=== PATIENT | female | born 1935 | race Caucasian/White ===

== ENCOUNTER 2016-08-07 08:30 | Emergency (ER) | payer OTHER, BC ==
[2016-08-07 08:42] VITALS: TEMP 97.9; BMI 22.1
[2016-08-07] MEDS ORDERED: morphine CARPU-JECT 4 MG/1 ML DISP.SYRIN IVPUSH ONE (08:59)
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
[2016-08-07] MEDS ORDERED: ACETAMINOPHEN INJECTION 100 ML IVPB ONE (09:14)
[2016-08-07] MEDS ORDERED: ACETAMINOPHEN 1000 MG/100 ML VIAL (NON FORMULARY) IVPB ONE (09:16)
[2016-08-07 09:31] LABS: BASOPHIL 1.4 % (0-2.0); EOSINOPHIL 1.5 % (0-4.5); MCH 29.5 pg (25.7-33.7); MCHC 33.2 g/dl (32.0-36.0); MEAN PLT VOLUME 8.1 fl (7.5-11.1); NEUTROPHILS 68.1 % (42.8-82.8); PLATELET COUNT 229 K/MM3 (134-434); RDW 13.7 % (11.6-15.6); WHITE BLOOD COUNT 5.2 K/mm3 (4.0-10.0)
[2016-08-07 09:58] LABS: ALBUMIN 3.9 g/dl (3.4-5.0); ANION GAP 9 (8-16); CALCIUM 9.2 mg/dL (8.5-10.1); CO2 25 mmol/L (21-32); COCKROFT - GAULT 51.8755; CREATININE 0.8 mg/dL (0.55-1.02); GLUCOSE,RANDOM 90 mg/dL (74-106); SGOT/AST 19 U/L (15-37); SGPT/ALT 17 U/L (12-78)
[2016-08-07 10:00] LABS: ALK PHOS 93 U/L (45-117); BILIRUBIN,TOTAL 0.5 mg/dL (0.2-1.0); TOT PROT 7.3 g/dl (6.4-8.2)
[2016-08-07 12:30] VITALS: BP 150/80; PULSE 78
== END 2016-08-07 12:30 | disposition home or self-care (01) ==
LOC: JER 08:30
PROC: 3E033NZ Introduction of Analgesics, Hypnotics, Sedatives into Peripheral Vein, Percutaneous Approach (ICD-10-PCS; principal; 2016-08-07)
DX: M25.552 Pain in left hip (principal); I25.10 Atherosclerotic heart disease of native coronary artery without angina pectoris; Z95.1 Presence of aortocoronary bypass graft; J44.9 Chronic obstructive pulmonary disease, unspecified; E78.00 Pure hypercholesterolemia, unspecified; Z87.891 Personal history of nicotine dependence; Z79.82 Long term (current) use of aspirin
CPT/HCPCS: 36415; 73523-TC; 80053; 85025; 99282-25

== ENCOUNTER 2016-08-09 21:08 | Inpatient (IN) | payer OTHER, BC ==
[2016-08-09 21:28] VITALS: BMI 24.1
--- NOTE | 2016-08-09 21:42 | PDOC ---
History of Present Illness - General History Source: Patient Exam Limitations: No Limitations - History of Present Illness Initial Comments: 08/09/16 22:31 The patient is a 80 year old female brought via EMS and presenting with her daughter, with a significant past medical history of COPD, CABG, and HLD, who presents to the emergency department after a fall today. She reports that she was sitting on the couch, when she slid off and landed on her buttocks. She currently reports some mild hip pain, without radiation or modifying factors. She states that she ambulates with a cane on baseline. She notes that she lives alone and has been progressively getting weaker. Drinks ensure 5 bottles a day. The patient denies chest pain, shortness of breath, headache and dizziness. Denies fever, chills, nausea, vomit, diarrhea and constipation. Denies dysuria, frequency, urgency and hematuria. Allergies: None Past surgical history: Tripple bypass (2010), left hip surgery Social history: No alcohol, tobacco or drug use reported PMD - Dr. Fleming <Bharath Maldonado - Last Filed: 08/09/16 22:31> - General History Source: [facility] Records <Hermelinda Jett - Last Filed: 08/10/16 06:00> - General Chief Complaint: Injury Stated Complaint: FALL Time Seen by Provider: 08/09/16 21:32 Past History <Bharath Maldonado - Last Filed: 08/09/16 22:31> - Past Medical History Cardiac Disorders: Yes (CABG) COPD: Yes Hypercholesterolemia: Yes - Surgical History Cardiac Surgery: Yes (cabg) Orthopedic Surgery: Yes (l hip surgery) - Immunization History Immunization Up to Date: Yes - Psycho/Social/Smoking Cessation Hx Anxiety: No Suicidal Ideation: No Smoking History: Never smoked Have you smoked in the past 12 months: No Information on smoking cessation initiated: No Hx Alcohol Use: No Drug/Substance Use Hx: No Substance Use Type: None <Hermelinda Jett - Last Filed: 08/10/16 06:00> - Past Medical History Allergies/Adverse Reactions: Allergies Allergy/AdvReac Type Severity Reaction Status Date / Time No Known Allergies Allergy Verified 08/09/16 21:25 Home Medications: Ambulatory Orders Albuterol 2.5/Ipratropium 0.5 [Duoneb -] 1 [facility] QIDR #1 vial 03/22/14 Aspirin [ASA -] 81 mg PO DAILY #1 tab.chew 03/22/14 Atorvastatin Ca [Lipitor] 40 mg PO HS 1 Days 03/22/14 Carvedilol [Coreg -] 3.125 mg PO BID #1 tablet 03/22/14 Clopidogrel Bisulfate [Plavix -] 75 mg PO DAILY #1 tablet 03/22/14 Pantoprazole Sodium [Protonix -] 40 mg PO DAILY #1 tablet.ec 03/22/14 Thiamine HCl [Vitamin B1 -] 100 mg PO DAILY #1 tablet 03/22/14 Acetaminophen [Tylenol -] 1,000 mg PO TID PRN #30 tablet 08/07/16 Methocarbamol [Robaxin -] 250 mg PO TID PRN #10 tablet 08/07/16 Review of Systems - Review of Systems Able to Perform ROS?: Yes Comments:: 08/09/16 22:31 GENERAL/CONSTITUTIONAL: (+) Generalized weaknes. No fever or chills. HEAD, EYES, EARS, NOSE AND THROAT: No change in vision. No ear pain or discharge. No sore throat. CARDIOVASCULAR: No chest pain or shortness of breath RESPIRATORY: No cough, wheezing, or hemoptysis. GASTROINTESTINAL: No nausea, vomiting, diarrhea or constipation. GENITOURINARY: No dysuria, frequency, or change in urination. MUSCULOSKELETAL: (+) Hip pain. No neck or back pain. SKIN: No rash NEUROLOGIC: No headache, vertigo, loss of consciousness, or change in strength/ sensation. ENDOCRINE: No increased thirst. No abnormal weight change HEMATOLOGIC/LYMPHATIC: No anemia, easy bleeding, or history of blood clots. ALLERGIC/IMMUNOLOGIC: No hives or skin allergy. <Bharath Maldonado - Last Filed: 08/09/16 22:31> *Physical Exam - Vital Signs Last Vital Signs Temp Pulse Resp BP Pulse Ox 97.6 F 92 H 18 105/63 97 08/09/16 21:25 08/09/16 21:25 08/09/16 21:25 08/09/16 21:25 08/09/16 21:25 - Physical Exam Comments: 08/09/16 22:31 GENERAL: Awake, alert, to person and place but not time, in no acute distress. Thin appearing. Wasted muscles throughout. HEAD: No signs of trauma, normocephalic, atraumatic EYES: PERRLA, EOMI, sclera anicteric, conjunctiva clear ENT: Auricles normal inspection, hearing grossly normal, nares patent, oropharynx clear without exudates. Moist mucosa NECK: Normal ROM, supple, no lymphadenopathy, JVD, or masses LUNGS: No distress, speaks full sentences, clear to auscultation bilaterally HEART: Regular rate and rhythm, normal S1 and S2, no murmurs, rubs or gallops, peripheral pulses normal and equal bilaterally. ABDOMEN: Soft, nontender, normoactive bowel sounds. No guarding, no rebound. No masses EXTREMITIES: Normal inspection, Normal range of motion, no edema. No clubbing or cyanosis. NEUROLOGICAL: Cranial nerves II through XII grossly intact. Normal speech, no focal sensorimotor deficits SKIN: Warm, Dry, normal turgor, no rashes or lesions noted. <Bharath Maldonado - Last Filed: 08/09/16 22:31> - Vital Signs Last Vital Signs Temp Pulse Resp BP Pulse Ox 97.6 F 92 H 18 105/63 97 08/09/16 21:25 08/09/16 21:25 08/09/16 21:25 08/09/16 21:25 08/09/16 21:25 <Hermelinda Jett - Last Filed: 08/10/16 06:00> ED Treatment Course - LABORATORY CBC & Chemistry Diagram: 08/09/16 22:00 08/09/16 22:00 - ADDITIONAL ORDERS Additional order review: Laboratory Results 08/09/16 22:00 INR 1.08 08/09/16 22:00 RBC 3.87 MCV 89.0 MCHC 32.5 RDW 13.5 MPV 8.0 Neutrophils % 71.2 Lymphocytes % 15.3 Monocytes % 11.7 H Eosinophils % 0.9 Basophils % 0.9 <Bharath Maldonado - Last Filed: 08/09/16 22:31> - LABORATORY CBC & Chemistry Diagram: 08/09/16 22:00 08/09/16 22:00 <Hermelinda Jett - Last Filed: 08/10/16 06:00> Medical Decision Making - Medical Decision Making 08/10/16 05:57 Niece brings patient to the ER, as pt is too weak to stand and has early dementia, and she slipped and fell off the couch, where she has been sleeping lately. Pt lives alone, and states that she stopped cooking and drinks 5 ensures daily. Pt smells and her clothes are dirty and it is clear that she cannot care for self. Pt is dehydrated and weak. She is alert to person and place. I spoke to her PMD Anival, who states that pt has mild dementia for a long time, but that it never stopped her from driving and caring for self. She will be admitted for hydration and workup. She will require physical therapy for strengthening and likely social work consult. 08/10/16 06:00 PMD wants me to admit to the hospitalist as observation patient. <Hermelinda Jett - Last Filed: 08/10/16 06:00> *DC/Admit/Observation/Transfer - Attestations Scribe Attestion: 08/09/16 22:32 Documentation prepared by Bharath Maldonado, acting as medical library assistant for Hermelinda Jett MD <Bharath Maldonado - Last Filed: 08/09/16 22:31> - Discharge Dispostion Admit: Yes <Hermelinda Jett - Last Filed: 08/10/16 06:00> Diagnosis at time of Disposition: Dementia, Generalized weakness, Fall from chair, Dehydration
[2016-08-09 22:12] LABS: BASOPHIL 0.9 % (0-2.0); EOSINOPHIL 0.9 % (0-4.5); MCH 28.9 pg (25.7-33.7); MCHC 32.5 g/dl (32.0-36.0); NEUTROPHILS 71.2 % (42.8-82.8); PLATELET COUNT 232 K/MM3 (134-434); RDW 13.5 % (11.6-15.6); WHITE BLOOD COUNT 7.5 K/mm3 (4.0-10.0)
[2016-08-09 22:23] LABS: INR 1.08 (0.82-1.09); PROTHROMBIN TIME (PATIENT) 11.9 SEC (9.98-11.88)
[2016-08-09] MEDS ORDERED: SODIUM CHLORIDE 0.9% 500 ML INFUS.BAG IV ONE (22:31)
[2016-08-09 22:34] LABS: ALBUMIN 3.4 g/dl (3.4-5.0); BILIRUBIN,TOTAL 0.4 mg/dL (0.2-1.0); CALCIUM 8.4 mg/dL (8.5-10.1); COCKROFT - GAULT 37.026; CREATININE 1.3 mg/dL (0.55-1.02); TOT PROT 6.5 g/dl (6.4-8.2)
--- NOTE | 2016-08-10 00:09 | PN ---
<RaminChhaya nguyen - Last Filed: 08/10/16 00:07> Teaching Attending Note Name of Resident: Warren Carrillo ATTENDING PHYSICIAN STATEMENT I saw and evaluated the patient. I reviewed the resident's note and discussed the case with the resident. I agree with the resident's findings and plan as documented. SUBJECTIVE: OBJECTIVE: ASSESSMENT AND PLAN: <Sujata Cervantes - Last Filed: 08/10/16 01:01> Teaching Attending Note ATTENDING PHYSICIAN STATEMENT I saw and evaluated the patient. I reviewed the resident's note and discussed the case with the resident. I agree with the resident's findings and plan as documented. SUBJECTIVE: 80 year old female brought via EMS and presenting with her daughter, with a significant past medical history of CAD s/p CABG(on aspirin and Plavix), COPD, HLD and left hip ORIF, who presents to the emergency department s/p sitting on her couch when she slid off the couch and landed on her buttocks. Patient is complaining of right hip pain s/p fall. Denies LOC, head trauma, lightheadedness, nausea, vomiting or abdominal pain. OBJECTIVE: VS: Last Vital Signs Temp Pulse Resp BP Pulse Ox 97.6 F 92 H 18 105/63 97 08/09/16 21:25 08/09/16 21:25 08/09/16 21:25 08/09/16 21:25 08/09/16 21:25 GEN: A&OX2 person and place, NAD HEENT: NCAT, PERRL CARD: RRR, S1 S2 RESP: CTAB ABD: NT, BWS x4 EXT: - CCE LABS: CBCD WBC 7.5 K/mm3 (4.0-10.0) D 08/09/16 22:00 RBC 3.87 M/mm3 (3.60-5.2) 08/09/16 22:00 Hgb 11.2 GM/dL (10.7-15.3) D 08/09/16 22:00 Hct 34.4 % (32.4-45.2) 08/09/16 22:00 MCV 89.0 fl (80-96) 08/09/16 22:00 MCHC 32.5 g/dl (32.0-36.0) 08/09/16 22:00 RDW 13.5 % (11.6-15.6) 08/09/16 22:00 Plt Count 232 K/MM3 (134-434) 08/09/16 22:00 MPV 8.0 fl (7.5-11.1) 08/09/16 22:00 CMP Sodium 138 mmol/L (136-145) 08/09/16 22:00 Potassium 3.9 mmol/L (3.5-5.1) 08/09/16 22:00 Chloride 106 mmol/L (98-107) 08/09/16 22:00 Carbon Dioxide 23 mmol/L (21-32) 08/09/16 22:00 Anion Gap 9 (8-16) 08/09/16 22:00 BUN 46 mg/dL (7-18) H D 08/09/16 22:00 Creatinine 1.3 mg/dL (0.55-1.02) H D 08/09/16 22:00 Creat Clearance w eGFR 39.61 (>60) 08/09/16 22:00 Calcium 8.4 mg/dL (8.5-10.1) L 08/09/16 22:00 Total Bilirubin 0.4 mg/dL (0.2-1.0) 08/09/16 22:00 AST 19 U/L (15-37) 08/09/16 22:00 ALT 16 U/L (12-78) 08/09/16 22:00 Alkaline Phosphatase 86 U/L (45-117) 08/09/16 22:00 Total Protein 6.5 g/dl (6.4-8.2) 08/09/16 22:00 Albumin 3.4 g/dl (3.4-5.0) 08/09/16 22:00 ASSESSMENT AND PLAN: 80 year old female with a significant past medical history of CAD s/p CABG, COPD , HLD and left hip ORIF, who presents s/p fall. 1. Mechanical fall - Follow official report of hip xray - IVF - Pain control 2. ARF - Urine lytes - IVF - Avoid nephrotoxins 3. Hx CAD s/p CABG - Continue home meds 4. COPD - Continue home meds 5. DVT ppx - Moderate risk - SCDs Documentation prepared by Sujata Cervantes, acting as biomedical equipment support specialist for Chhaya Faustin D.O.
[2016-08-10 00:22] LABS: URINE APPEARANCE CLEAR; URINE BILIRUBIN NEGATIVE (NEGATIVE); URINE COLOR STRAW; URINE GLUCOSE (UA) NEGATIVE (NEGATIVE); URINE KETONE NEGATIVE (NEGATIVE); URINE NITRITE NEGATIVE (NEGATIVE); URINE PROTEIN NEGATIVE (NEGATIVE); URINE UROBILINOGEN NEGATIVE E.U./dl (0.2-1.0)
--- NOTE | 2016-08-10 01:09 | HP ---
CHIEF COMPLAINT: R hip pain PCP: Dr. Florian HISTORY OF PRESENT ILLNESS: 80 y/o F w/PMH of COPD, HLD, CABG presents to ER w c/o R hip pain s/p mechanical fall off couch. She states last night she slid off her couch and landed on her butt. She denies any head trauma but has difficulty remembering the events and does not remember if she was on the floor for long or if she picked herself up soon after fall. She states her cousin came to see her this morning and at this time she was not on the floor. She did not try to walk this morning because she was afraid she might fall again. She denies any LOC, light- headedness, palpitations, CP, SOB, dysuria, abd pain, change in bowel movements , blood in stool, blood in urine, peripheral swelling, recent illness. Pt lives alone in private house where she is usually able to ambulate using a cane and walks up stairs. She has [employer] from 9-5 on weekdays. She does not follow with PCP , Dr. Florian regularly and only sees him when she isn't feeling well. She denies frequent falls. Pt does state over the last 6 months she has been feeling progressively weaker. 6 months ago she feels as though she would be able to pick herself up from floor if needed and at this time she feels like she would have difficulty with getting up from floor. ER course was notable for: (1) Hip/Pelvis XR, IVF (2) (3) PAST MEDICAL HISTORY: COPD, HLD, CABG PAST SURGICAL HISTORY: triple bypass, L hip replacement Social History: Smoking: quit 7-8 years ago, smoked 1ppd previously (does not remember for how long) Alcohol: denies Drugs: denies Family History: non-contributory Allergies No Known Allergies Allergy (Verified 08/09/16 21:25) HOME MEDICATIONS: Home Medications Medication Instructions Recorded Albuterol 2.5/Ipratropium 0.5 1 [facility] QIDR #1 vial 03/22/14 [Duoneb -] Aspirin [ASA -] 81 mg PO DAILY #1 tab.chew 03/22/14 Atorvastatin Ca [Lipitor] 40 mg PO HS 1 Days 03/22/14 Carvedilol [Coreg -] 3.125 mg PO BID #1 tablet 03/22/14 Clopidogrel Bisulfate [Plavix -] 75 mg PO DAILY #1 tablet 03/22/14 Pantoprazole Sodium [Protonix -] 40 mg PO DAILY #1 tablet.ec 03/22/14 Thiamine HCl [Vitamin B1 -] 100 mg PO DAILY #1 tablet 03/22/14 Acetaminophen [Tylenol -] 1,000 mg PO TID PRN #30 tablet 08/07/16 Methocarbamol [Robaxin -] 250 mg PO TID PRN #10 tablet 08/07/16 REVIEW OF SYSTEMS CONSTITUTIONAL: +generalized progressive weakness Absent: fever, chills, diaphoresis, malaise HEENT: Absent: ringing in ears, visual changes CARDIOVASCULAR: Absent: chest pain, syncope, palpitations, irregular heart rate, lightheadedness , peripheral edema RESPIRATORY: Absent: cough, shortness of breath, dyspnea with exertion GASTROINTESTINAL: Absent: abdominal pain, nausea, vomiting, diarrhea, constipation, hematochezia GENITOURINARY: Absent: dysuria, frequency, hematuria MUSCULOSKELETAL: + R hip pain Absent: myalgia, arthralgia, joint swelling, back pain, neck pain NEUROLOGIC: Absent: headache, focal weakness or paresthesias, dizziness, unsteady gait PSYCHIATRIC: Absent: anxiety, depression PHYSICAL EXAMINATION Vital Signs - 24 hr 08/09/16 21:25 Temperature 97.6 F Pulse Rate 92 H Respiratory 18 Rate Blood Pressure 105/63 O2 Sat by Pulse 97 Oximetry (%) GENERAL: Awake, alert, oriented to person and place, in no acute distress. HEAD: Normal with no signs of trauma. EYES: extraocular movements intact, sclera anicteric, conjunctiva clear. No lid lag. EARS, NOSE, THROAT: Ears normal, nares patent NECK: Normal range of motion, supple LUNGS: Auscultated anteriorly. Breath sounds equal, clear to auscultation bilaterally. No wheezes, and no crackles. No accessory muscle use. HEART: Regular rate and rhythm, normal S1 and S2. ABDOMEN: Soft, nontender, not distended, normoactive bowel sounds, no guarding, no rebound, no masses. MUSCULOSKELETAL: Normal range of motion at all joints. No bony deformities or tenderness. No pain with log-rolling of legs. No pain at hip with inversion or eversion of leg at knee. LOWER EXTREMITIES: warm, well-perfused. No calf tenderness. No peripheral edema. NEUROLOGICAL: Memory loss. Normal speech. Gait not observed. PSYCHIATRIC: Cooperative. Good eye contact. Appropriate mood and affect. SKIN: Warm, dry, normal turgor, no rashes or lesions noted, normal capillary refill. Laboratory Results - last 24 hr 08/09/16 08/09/16 08/09/16 22:00 22:00 22:00 WBC 7.5 D RBC 3.87 Hgb 11.2 D Hct 34.4 MCV 89.0 MCHC 32.5 RDW 13.5 Plt Count 232 MPV 8.0 Neutrophils % 71.2 Lymphocytes % 15.3 Monocytes % 11.7 H Eosinophils % 0.9 Basophils % 0.9 INR 1.08 Sodium 138 Potassium 3.9 Chloride 106 Carbon Dioxide 23 Anion Gap 9 BUN 46 H D Creatinine 1.3 H D Creat Clearance w eGFR 39.61 Random Glucose 119 H D Calcium 8.4 L Total Bilirubin 0.4 AST 19 ALT 16 Alkaline Phosphatase 86 Total Protein 6.5 Albumin 3.4 Imaging: Hip and L pelvis: As per my read, no fractures noted. Awaiting official reads CXR: As per my read, no acute pathology noted. ASSESSMENT/PLAN: 80 y/o F w/PMH of COPD, HLD, CABG presents to ER w c/o R hip pain s/p mechanical fall off couch. Admitted for generalized weakness and KIRILL. -KIRILL -Cr 1.3, baseline 0.8 -secondary to dehydration -Gentle IVF hydration - NS @ 75 ml/hr -monitor Cr -f/u urine lytes for FeNa -s/p Mechanical Fall -Pending official reads of Hip and L Pelvis XR -Pt also complaining of R hip pain - will order R pelvis XR -pt with full ROM passively at hip -Generalized weakness -Monitor for signs of infection; f/u UA -CAD -c/w lipitor 40 mg po qhs -will hold ASA and plavix, awaiting XR reads -COPD -duo-nebs qidr -HTN -will hold anti-hypertensives as blood pressure not elevated at this time =FEN -NS @ 75 ml/hr -Monitor lytes -Cardiac diet -Dispo -Admit to m/s Visit type - Emergency Visit Emergency Visit: Yes ED Registration Date: 08/09/16 Care time: The patient presented to the Emergency Department on the above date and was hospitalized for further evaluation of their emergent condition. - New Patient This patient is new to me today: Yes Date on this admission: 08/10/16 - Critical Care Critical Care patient: No
[2016-08-10 01:25] LABS: URINE BLOOD 1+ (NEGATIVE); URINE LEUK ESTERASE 1+ (NEGATIVE)
[2016-08-10 01:26] LABS: URINE BACTERIA RARE /hpf (NONE SEEN); URINE RBC <1 /hpf (0-3); URINE WBC 1 /hpf (3-5)
[2016-08-10] MEDS ORDERED: ALBUTEROL SO4 2.5/IPRATROPIUM 0.5 INH SOL 3 ML VIAL.NEB. NEB SCH (06:00)
--- NOTE | 2016-08-10 08:18 | HP ---
Admitting History and Physical - Admission Chief Complaint: 80 y.o F had a fall at home and was brought in to ER. She reports progressive difficulty ambulating, weaknes-"I was not able to do anything". She was seen in the ER a week prior to this admission in the ER for generalized weakness and was D/C home. History of Present Illness: Left hip ORIF. Hx of ND and CABG at [facility]. COPD. Gait disorder. Cognitive impairment Hx of ETOH hepatitis yrs ago. 2015 Strep bacteremia History Source: Patient, Medical Record Limitations to Obtaining History: No Limitations - Past Medical History Cardiovascular: Yes: CAD Pulmonary: Yes: Bronchitis, COPD. No: O2 Dependent, Sleep Apnea Hepatobiliary: Yes: Other (etoh hepatitis in the past). No: Cirrhosis, Cholelithiasis, Cholecystitis, Choledocholithiasis, Hepatitis A, Hepatitis B, Hepatitis C Infectious Disease: No: AIDS, C-Diff, Herpes Zoster, HIV, MRSA, STD's, Tuberculosis, VREF, Other Psych: Yes: Anxiety. No: Addictions Musculoskeletal: Yes: Osteoarthritis Rheumatology: No: Fibromyalgia, Gout, Lupus, Rheumatoid Arthritis, Sarcoidosis, Vasculitis, Other ENT: No: Allergic Rhinitis, Sinusitis, Other Endocrine: Yes: SIADH - Past Surgical History Past Surgical History: Yes: CABG - Smoking History Smoking history: Never smoked Have you smoked in the past 12 months: No - Alcohol/Substance Use Hx Alcohol Use: No - Social History History of Recent Travel: No Home Medications - Allergies Allergies/Adverse Reactions: Allergies Allergy/AdvReac Type Severity Reaction Status Date / Time No Known Allergies Allergy Verified 08/09/16 21:25 - Home Medications Home Medications: Ambulatory Orders Albuterol 2.5/Ipratropium 0.5 [Duoneb -] 1 [facility] QIDR #1 vial 03/22/14 Aspirin [ASA -] 81 mg PO DAILY #1 tab.chew 03/22/14 Atorvastatin Ca [Lipitor] 40 mg PO HS 1 Days 03/22/14 Carvedilol [Coreg -] 3.125 mg PO BID #1 tablet 03/22/14 Clopidogrel Bisulfate [Plavix -] 75 mg PO DAILY #1 tablet 03/22/14 Pantoprazole Sodium [Protonix -] 40 mg PO DAILY #1 tablet.ec 03/22/14 Thiamine HCl [Vitamin B1 -] 100 mg PO DAILY #1 tablet 03/22/14 Acetaminophen [Tylenol -] 1,000 mg PO TID PRN #30 tablet 08/07/16 Methocarbamol [Robaxin -] 250 mg PO TID PRN #10 tablet 08/07/16 Family Disease History - Family Disease History Family History: Unremarkable Review of Systems - Review of Systems Constitutional: reports: Loss of Appetite, Weakness Eyes: denies: Recent Change in Vision HENT: reports: No Symptoms Neck: denies: No Symptoms, Decreased ROM, Lumps, Pain on Movement, Stiffness, Swollen Glands, Tenderness, Other Cardiovascular: denies: Chest Pain, Edema, Palpitations, Shortness of Breath Respiratory: denies: Cough, Exercise Intolerance Gastrointestinal: reports: Constipation. denies: Abdominal Pain, Bloating, Melena, Nausea, Vomiting Genitourinary: denies: Burning, Discharge, Dysuria Breasts: reports: No Symptoms Reported Musculoskeletal: reports: Muscle Weakness Integumentary: reports: No Symptoms Neurological: reports: Incoordination, Unsteady Gait, Weakness. denies: Change in Speech, Headache Endocrine: reports: No Symptoms Hematology/Lymphatic: reports: No Symptoms Psychiatric: reports: Anxiety, Depression Physical Examination Vital Signs: Vital Signs Temperature 98.2 F 08/09/16 23:43 Pulse Rate 69 08/09/16 23:43 Respiratory Rate 18 08/09/16 23:43 Blood Pressure 114/51 08/09/16 23:43 O2 Sat by Pulse Oximetry (%) 97 08/09/16 23:43 Constitutional: Yes: Anxious, Thin. No: No Distress, Obese, Pallor Eyes: Yes: Conjunctiva Clear, EOM Intact HENT: Yes: Atraumatic, Normocephalic Neck: Yes: Supple, Trachea Midline. No: Decreased ROM, Lymphadenopathy, Rigid, Tenderness, Thyromegaly Cardiovascular: Yes: Regular Rate and Rhythm. No: Bradycardia, Tachycardia, Bruit, JVD Gastrointestinal: Yes: Normal Bowel Sounds, Soft. No: Abdomen, Obese, Ascites, Palpable Mass, Pulsatile Mass ...Rectal Exam: Yes: Deferred Renal/: No: Anuria, Bladder Distention, CVA Tenderness - Left Breast(s): Yes: Left, Right. No: Mass Musculoskeletal: Yes: Muscle Weakness. No: Joint Swelling Extremities: No: Amputation, Calf Tenderness, Cold, Deformity Edema: No Peripheral Pulses WNL: No Integumentary: Yes: WNL Neurological: Yes: Alert, Oriented, Ataxia, Unsteady Gait. No: Aphasia, Asterixis, Dysarthria, Facial Droop, Seizure, Unresponsive, Weakness ...Motor Strength: WNL Psychiatric: Yes: Alert, Oriented. No: Agitated, Suicidal Ideation Labs: Laboratory Results - last 24 hr 08/09/16 08/09/16 08/09/16 21:50 22:00 22:00 WBC 7.5 D RBC 3.87 Hgb 11.2 D Hct 34.4 MCV 89.0 MCHC 32.5 RDW 13.5 Plt Count 232 MPV 8.0 Neutrophils % 71.2 Lymphocytes % 15.3 Monocytes % 11.7 H Eosinophils % 0.9 Basophils % 0.9 INR 1.08 Sodium Potassium Chloride Carbon Dioxide Anion Gap BUN Creatinine Creat Clearance w eGFR Random Glucose Calcium Total Bilirubin AST ALT Alkaline Phosphatase Total Protein Albumin Urine Color Straw Urine Appearance Clear Urine pH 7.0 Urine Protein Negative Urine Glucose (UA) Negative Urine Ketones Negative Urine Blood 1+ H Urine Nitrite Negative Urine Bilirubin Negative Urine Urobilinogen Negative Ur Leukocyte Esterase 1+ H Urine RBC <1 Urine WBC 1 Ur Epithelial Cells Rare Urine Bacteria Rare 08/09/16 22:00 WBC RBC Hgb Hct MCV MCHC RDW Plt Count MPV Neutrophils % Lymphocytes % Monocytes % Eosinophils % Basophils % INR Sodium 138 Potassium 3.9 Chloride 106 Carbon Dioxide 23 Anion Gap 9 BUN 46 H D Creatinine 1.3 H D Creat Clearance w eGFR 39.61 Random Glucose 119 H D Calcium 8.4 L Total Bilirubin 0.4 AST 19 ALT 16 Alkaline Phosphatase 86 Total Protein 6.5 Albumin 3.4 Urine Color Urine Appearance Urine pH Urine Protein Urine Glucose (UA) Urine Ketones Urine Blood Urine Nitrite Urine Bilirubin Urine Urobilinogen Ur Leukocyte Esterase Urine RBC Urine WBC Ur Epithelial Cells Urine Bacteria Imaging - Results Chest X-ray: Pending X-ray: Pending Problem List - Problems (1) Generalized weakness Assessment/Plan: Fall at home Diff diagnosis-includes deconditioning, LS stenosis, ? drinking etc Discussed with Dr Mann, Neuro f/u PT. Code(s): R53.1 - WEAKNESS (2) ASHD (arteriosclerotic heart disease) Assessment/Plan: Continue Lipitor, Coreg, ASA/Plavix. Code(s): I25.10 - ATHSCL HEART DISEASE OF [place] CORONARY ARTERY W/O ANG PCTRS (3) COPD (chronic obstructive pulmonary disease) Assessment/Plan: EX smoker. Continue nebs. Code(s): J44.9 - CHRONIC OBSTRUCTIVE PULMONARY DISEASE, UNSPECIFIED Qualifiers : COPD type: emphysema (4) Confusion Assessment/Plan: Pt has some chronic cognitive but mild impairment Will follow with neurology. B12 level, TFT, Code(s): R41.0 - DISORIENTATION, UNSPECIFIED (5) ARF (acute renal failure) Assessment/Plan: BUN?Cr 20/0.7-baseline in 03/26/14. Probably pre-renal, dehydration. Will start IBV hydration. Follow labs Code(s): N17.9 - ACUTE KIDNEY FAILURE, UNSPECIFIED Qualifiers: Acute renal failure type: unspecified Qualified Code(s): N17.9 - Acute kidney failure, unspecified
[2016-08-10 09:13] LABS: FREE T4 1.41 ng/dl (0.76-1.46)
--- NOTE | 2016-08-10 09:13 | CON.NEURO ---
Consult Consult Specialty:: neurology - History of Present Illness History of Present Illness: 80 y/o F w/PMH of COPD, HLD, CABG, (HX of fracture R leg ?)presents to ER w c/o R hip pain s/p mechanical fall off couch. She states she slid off her couch and landed on her butt. She denies any head trauma but has difficulty remembering the events and does not remember if she was on the floor for long or if she picked herself up soon after fall. She denies any LOC, light-headedness, palpitations, CP, SOB, dysuria, abd pain, change in bowel movements, blood in stool, blood in urine, peripheral swelling, recent illness. weakness and imablance worse over 6 months, though she is not very clear with details. She denies any focal weakness, though has pain in the right hip and knee. denies numbness, BB issues, or PAYNE or cognitive issues. NO ETOH, quit smoking, Pt lives alone in private house where she is usually able to ambulate using a cane and walks up stairs. She has [employer] from 9-5 on weekdays. - History Source History Provided By: Patient, Medical Record - Past Medical History Cardio/Vascular: Yes: CAD Pulmonary: Yes: Bronchitis, COPD. No: O2 Dependent, Sleep Apnea Hepatobiliary: Yes: Other (etoh hepatitis in the past). No: Cirrhosis, Cholelithiasis, Cholecystitis, Choledocholithiasis, Hepatitis A, Hepatitis B, Hepatitis C Infectious Disease: No: AIDS, C-Diff, Herpes Zoster, HIV, MRSA, STD's, Tuberculosis, VREF, Other Psych: Yes: Anxiety. No: Addictions Musculoskeletal: Yes: Osteoarthritis Rheumatology: No: Fibromyalgia, Gout, Lupus, Rheumatoid Arthritis, Sarcoidosis, Vasculitis, Other ENT: No: Allergic Rhinitis, Sinusitis, Other Endocrine: Yes: SIADH - Past Surgical History Past Surgical History: Yes: CABG - Alcohol/Substance Use Hx Alcohol Use: No - Smoking History Smoking history: Never smoked Have you smoked in the past 12 months: No - Social History Usual Living Arrangement: With Spouse History of Recent Travel: No Home Medications - Allergies Allergies/Adverse Reactions: Allergies Allergy/AdvReac Type Severity Reaction Status Date / Time No Known Allergies Allergy Verified 08/09/16 21:25 - Home Medications Home Medications: Ambulatory Orders Albuterol 2.5/Ipratropium 0.5 [Duoneb -] 1 neb [facility] QIDR #1 vial 03/22/14 Aspirin [ASA -] 81 mg PO DAILY #1 tab.chew 03/22/14 Atorvastatin Ca [Lipitor] 40 mg PO HS 1 Days 03/22/14 Carvedilol [Coreg -] 3.125 mg PO BID #1 tablet 03/22/14 Clopidogrel Bisulfate [Plavix -] 75 mg PO DAILY #1 tablet 03/22/14 Pantoprazole Sodium [Protonix -] 40 mg PO DAILY #1 tablet.ec 03/22/14 Thiamine HCl [Vitamin B1 -] 100 mg PO DAILY #1 tablet 03/22/14 Acetaminophen [Tylenol -] 1,000 mg PO TID PRN #30 tablet 08/07/16 Methocarbamol [Robaxin -] 250 mg PO TID PRN #10 tablet 08/07/16 Physical Exam-Neuro Vital Signs: Vital Signs Temperature 98.6 F 08/10/16 08:00 Pulse Rate 75 08/10/16 08:00 Respiratory Rate 18 08/10/16 08:00 Blood Pressure 106/59 08/10/16 08:00 O2 Sat by Pulse Oximetry (%) 97 08/09/16 23:43 Constitutional: Yes: Calm Neck: Yes: Supple Cardiovascular: Yes: Regular Rate and Rhythm Respiratory: Yes: Regular Gastrointestinal: Yes: Normal Bowel Sounds Labs: INR, PTT INR 1.08 (0.82-1.09) 08/09/16 22:00 CBCD WBC 7.5 K/mm3 (4.0-10.0) D 08/09/16 22:00 RBC 3.87 M/mm3 (3.60-5.2) 08/09/16 22:00 Hgb 11.2 GM/dL (10.7-15.3) D 08/09/16 22:00 Hct 34.4 % (32.4-45.2) 08/09/16 22:00 MCV 89.0 fl (80-96) 08/09/16 22:00 MCHC 32.5 g/dl (32.0-36.0) 08/09/16 22:00 RDW 13.5 % (11.6-15.6) 08/09/16 22:00 Plt Count 232 K/MM3 (134-434) 08/09/16 22:00 MPV 8.0 fl (7.5-11.1) 08/09/16 22:00 CMP Sodium 138 mmol/L (136-145) 08/09/16 22:00 Potassium 3.9 mmol/L (3.5-5.1) 08/09/16 22:00 Chloride 106 mmol/L (98-107) 08/09/16 22:00 Carbon Dioxide 23 mmol/L (21-32) 08/09/16 22:00 Anion Gap 9 (8-16) 08/09/16 22:00 BUN 46 mg/dL (7-18) H D 08/09/16 22:00 Creatinine 1.3 mg/dL (0.55-1.02) H D 08/09/16 22:00 Creat Clearance w eGFR 39.61 (>60) 08/09/16 22:00 Calcium 8.4 mg/dL (8.5-10.1) L 08/09/16 22:00 Total Bilirubin 0.4 mg/dL (0.2-1.0) 08/09/16 22:00 AST 19 U/L (15-37) 08/09/16 22:00 ALT 16 U/L (12-78) 08/09/16 22:00 Alkaline Phosphatase 86 U/L (45-117) 08/09/16 22:00 Total Protein 6.5 g/dl (6.4-8.2) 08/09/16 22:00 Albumin 3.4 g/dl (3.4-5.0) 08/09/16 22:00 Laboratory Tests 08/09/16 08/09/16 08/09/16 21:50 22:00 22:00 WBC 7.5 D RBC 3.87 Hgb 11.2 D Hct 34.4 MCV 89.0 MCHC 32.5 RDW 13.5 Plt Count 232 MPV 8.0 Neutrophils % 71.2 Lymphocytes % 15.3 Monocytes % 11.7 H Eosinophils % 0.9 Basophils % 0.9 INR 1.08 Sodium Potassium Chloride Carbon Dioxide Anion Gap BUN Creatinine Creat Clearance w eGFR Random Glucose Calcium Total Bilirubin AST ALT Alkaline Phosphatase Total Protein Albumin Urine Color Straw Urine Appearance Clear Urine pH 7.0 Urine Protein Negative Urine Glucose (UA) Negative Urine Ketones Negative Urine Blood 1+ H Urine Nitrite Negative Urine Bilirubin Negative Urine Urobilinogen Negative Ur Leukocyte Esterase 1+ H Urine RBC <1 Urine WBC 1 Ur Epithelial Cells Rare Urine Bacteria Rare 08/09/16 22:00 WBC RBC Hgb Hct MCV MCHC RDW Plt Count MPV Neutrophils % Lymphocytes % Monocytes % Eosinophils % Basophils % INR Sodium 138 Potassium 3.9 Chloride 106 Carbon Dioxide 23 Anion Gap 9 BUN 46 H D Creatinine 1.3 H D Creat Clearance w eGFR 39.61 Random Glucose 119 H D Calcium 8.4 L Total Bilirubin 0.4 AST 19 ALT 16 Alkaline Phosphatase 86 Total Protein 6.5 Albumin 3.4 Urine Color Urine Appearance Urine pH Urine Protein Urine Glucose (UA) Urine Ketones Urine Blood Urine Nitrite Urine Bilirubin Urine Urobilinogen Ur Leukocyte Esterase Urine RBC Urine WBC Ur Epithelial Cells Urine Bacteria - Neuro Exam Level Of Consciousness: Yes: Alert, Oriented to Person (awake and alert, EOMI, VFF, no facial, motor: UE 5/5 , no drift, no ataxia, RLE pain limited at hip atnd knee though appears 5/5, no sensory level, dec reflexes distal LE, plantars appear up, pain in the post aspect R knee, gaiot not tested--awaiting XRAY ) NIH Stroke Scale - Total Score NIH Stroke Scale Score: 0 Problem List - Problems (1) ARF (acute renal failure) Code(s): N17.9 - ACUTE KIDNEY FAILURE, UNSPECIFIED Qualifiers: Acute renal failure type: unspecified Qualified Code(s): N17.9 - Acute kidney failure, unspecified (2) Generalized weakness Code(s): R53.1 - WEAKNESS (3) COPD (chronic obstructive pulmonary disease) Code(s): J44.9 - CHRONIC OBSTRUCTIVE PULMONARY DISEASE, UNSPECIFIED Qualifiers : COPD type: emphysema (4) Hip pain Code(s): M25.559 - PAIN IN UNSPECIFIED HIP Qualifiers: Laterality: left Qualified Code(s): M25.552 - Pain in left hip (5) Gait abnormality Code(s): R26.9 - UNSPECIFIED ABNORMALITIES OF GAIT AND MOBILITY Assessment/Plan 80 y/o F w/PMH of COPD, HLD, CABG, (HX of fracture R leg ?)presents to ER w c/o R hip pain s/p mechanical fall off couch. generalized weakness and imbalance over 6 months , no sig focality on exam , though upgoing plantars so may have long tract pathology; also appears to have general deconditioning, check MRI BRAIN and C spine. check ESR, TSH , B12 consider outpt EMG rehab consult and FU XRAYS. FU Kidney function/hydration. Dr Villagran [phone]
[2016-08-10 09:19] LABS: THYROID STIMULATING HORMONE 0.44 uIU/ml (0.358-3.74)
[2016-08-10 09:30] LABS: C-REACTIVE PROTEIN 0.5 MG/DL (0.00-0.3)
[2016-08-10] MEDS: SODIUM CHLORIDE 1,000 ML IV SCH (11:02)
[2016-08-10] MEDS: POLYETHYLENE GLYCOL 3350 119 GM BTL PO SCH ×2 (11:27→21:42)
[2016-08-10] MEDS: ASPIRIN 81 MG CHEWABLE TABLETS PO SCH (11:27)
[2016-08-10] MEDS: THIAMINE HCL 100 MG TABLET (FP) PO SCH (11:27)
[2016-08-10] MEDS: CARVEDILOL 3.125 MG TABLET (FP) PO SCH ×2 (11:27→21:42)
[2016-08-10] MEDS: CLOPIDOGREL BISULFATE 75 MG TABLET (FP) PO SCH (11:27)
[2016-08-10] MEDS: ALBUTEROL SO4 2.5/IPRATROPIUM 0.5 INH SOL 3 ML VIAL.NEB. NEB SCH ×3 (11:28→23:05)
--- NOTE | 2016-08-10 14:06 | EKG ---
Test Reason : Blood Pressure : / mmHG Vent. 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
[2016-08-10] MEDS: ATORVASTATIN CA 40 MG TABLET (FP) PO SCH (21:42)
[2016-08-11] MEDS: SODIUM CHLORIDE 1,000 ML IV SCH (01:43)
[2016-08-11] MEDS: ALBUTEROL SO4 2.5/IPRATROPIUM 0.5 INH SOL 3 ML VIAL.NEB. NEB SCH ×4 (06:47→23:51)
[2016-08-11 07:50] LABS: BASOPHIL 0.8 % (0-2.0); EOSINOPHIL 3.6 % (0-4.5); MCH 29.6 pg (25.7-33.7); MCHC 33.3 g/dl (32.0-36.0); MEAN CELL VOLUME 88.7 fl (80-96); MEAN PLT VOLUME 8.4 fl (7.5-11.1); NEUTROPHILS 66.9 % (42.8-82.8); PLATELET COUNT 200 K/MM3 (134-434); RDW 13.9 % (11.6-15.6); WHITE BLOOD COUNT 5.2 K/mm3 (4.0-10.0)
[2016-08-11 08:10] LABS: ALBUMIN 3.3 g/dl (3.4-5.0); ANION GAP 11 (8-16); CALCIUM 8.8 mg/dL (8.5-10.1); CO2 22 mmol/L (21-32); COCKROFT - GAULT 69.3345; CREATININE 0.6 mg/dL (0.55-1.02); GLUCOSE,RANDOM 91 mg/dL (74-106); SGOT/AST 22 U/L (15-37); SGPT/ALT 16 U/L (12-78); TOT PROT 6.4 g/dl (6.4-8.2)
[2016-08-11 08:12] LABS: ALK PHOS 84 U/L (45-117)
[2016-08-11] MEDS ORDERED: PT OWN MED DRAWER 7, Y5N ONE (09:51)
[2016-08-11] MEDS: POLYETHYLENE GLYCOL 3350 119 GM BTL PO SCH ×2 (09:54→21:13)
[2016-08-11] MEDS: CARVEDILOL 3.125 MG TABLET (FP) PO SCH ×2 (09:54→21:13)
[2016-08-11] MEDS: CLOPIDOGREL BISULFATE 75 MG TABLET (FP) PO SCH (09:54)
[2016-08-11] MEDS: ASPIRIN 81 MG CHEWABLE TABLETS PO SCH (09:54)
[2016-08-11] MEDS: THIAMINE HCL 100 MG TABLET (FP) PO SCH (09:54)
--- NOTE | 2016-08-11 13:03 | PN ---
Progress Note (short form) - Note Progress Note: Awake, alert, NAD.Occasionally cofused and disoriented Vital Signs Period Temp Pulse Resp BP Sys/Laws Pulse Ox Last 24 Hr 98.1 F-98.5 F 76-81 17-18 111/76 96 Current Active Problems Problem Status Diagnosed ARF (acute renal failure) Acute Dehydration Acute Dementia Acute Fall from chair Acute Gait abnormality Acute Generalized weakness Acute Dr Villagran consult appreciated-he is considering old pathology. Imaging , EMG can be done as outpt. B12, Folate -TFT-negative. Bld cx-neg, ua cx-contamination Renal function improved-back to baseline. Neck-no JVD' Lungs Clear Heart S1S2 regualr Abdomen soft NT Ext-no CCE Laboratory Results - last 24 hr 08/10/16 08/10/16 08/10/16 08:20 11:30 11:30 WBC RBC Hgb Hct MCV MCHC RDW Plt Count MPV Neutrophils % Lymphocytes % Monocytes % Eosinophils % Basophils % Sodium Potassium Chloride Carbon Dioxide Anion Gap BUN Creatinine Creat Clearance w eGFR Random Glucose Calcium Total Bilirubin AST ALT Alkaline Phosphatase Total Protein Albumin Prealbumin Free T3 2.3 Ur Random Sodium 85 Ur Random Potassium 26.2 Ur Random Chloride 81 Urine Creatinine 72.4 08/11/16 08/11/16 06:55 06:55 WBC 5.2 D RBC 4.08 Hgb 12.1 Hct 36.2 MCV 88.7 MCHC 33.3 RDW 13.9 Plt Count 200 MPV 8.4 Neutrophils % 66.9 Lymphocytes % 17.9 Monocytes % 10.8 H Eosinophils % 3.6 D Basophils % 0.8 Sodium 141 Potassium 4.3 Chloride 108 H Carbon Dioxide 22 Anion Gap 11 BUN 16 D Creatinine 0.6 D Creat Clearance w eGFR > 60 Random Glucose 91 D Calcium 8.8 Total Bilirubin 1.0 D AST 22 ALT 16 Alkaline Phosphatase 84 Total Protein 6.4 Albumin 3.3 L Prealbumin 18.8 L Free T3 Ur Random Sodium Ur Random Potassium Ur Random Chloride Urine Creatinine Plan SNF for rehab is planned, discussed with pt and staff Continue PO hydration. Problem List - Problems (1) Generalized weakness Code(s): R53.1 - WEAKNESS (2) ASHD (arteriosclerotic heart disease) Code(s): I25.10 - ATHSCL HEART DISEASE OF [place] CORONARY ARTERY W/O ANG PCTRS (3) COPD (chronic obstructive pulmonary disease) Code(s): J44.9 - CHRONIC OBSTRUCTIVE PULMONARY DISEASE, UNSPECIFIED Qualifiers : COPD type: emphysema (4) Confusion Code(s): R41.0 - DISORIENTATION, UNSPECIFIED (5) ARF (acute renal failure) Code(s): N17.9 - ACUTE KIDNEY FAILURE, UNSPECIFIED Qualifiers: Acute renal failure type: unspecified Qualified Code(s): N17.9 - Acute kidney failure, unspecified
--- NOTE | 2016-08-11 14:52 | PN ---
Progress Note, Physician Chief Complaint: confusion and gait instability and falls History of Present Illness: 80 y/o F w/PMH of COPD, HLD, CABG, (HX of fracture R leg ?)presents to ER w c/o R hip pain s/p mechanical fall off couch. She states she slid off her couch and landed on her buttocks. She denies any head trauma but has difficulty remembering the events and does not remember if she was on the floor for long or if she picked herself up soon after fall. She denies any LOC, light-headedness, palpitations, CP, SOB, dysuria, abd pain, change in bowel movements, blood in stool, blood in urine, peripheral swelling, recent illness. weakness and imablance worse over 6 months, though she is not very clear with details. She denies any focal weakness, though has pain in the right hip and knee. denies numbness, BB issues, or PAYNE or cognitive issues. NO ETOH, quit smoking, Pt lives alone in private house where she is usually able to ambulate using a cane and walks up stairs. She has [employer] from 9-5 on weekdays. - Current Medication List Current Medications: Active Medications Albuterol/Ipratropium (Duoneb -) 1 amp NEB QIDR [facility] Last Admin: 08/11/16 11:37 Dose: 1 amp Aspirin (Asa -) 81 mg PO DAILY [facility] Last Admin: 08/11/16 09:54 Dose: 81 mg Atorvastatin Calcium (Lipitor -) 40 mg PO HS [facility] Last Admin: 08/10/16 21:42 Dose: 40 mg Carvedilol (Coreg -) 3.125 mg PO BID [facility] Last Admin: 08/11/16 09:54 Dose: 3.125 mg Clopidogrel Bisulfate (Plavix -) 75 mg PO DAILY [facility] Last Admin: 08/11/16 09:54 Dose: 75 mg Sodium Chloride (Normal Saline -) 1,000 mls @ 75 mls/hr IV ASDIR [facility] Last Admin: 08/11/16 01:43 Dose: 75 mls/hr Polyethylene Glycol (Miralax (For Daily Use) -) 17 gm PO BID [facility] Last Admin: 08/11/16 09:54 Dose: 17 grams Thiamine HCl (Vitamin B1 -) 100 mg PO DAILY [facility] Last Admin: 06/13/17 09:54 Dose: 100 mg - Objective Vital Signs: Vital Signs Temperature 98.6 F 08/11/16 14:05 Pulse Rate 89 08/11/16 14:05 Respiratory Rate 18 08/11/16 14:05 Blood Pressure 110/77 08/11/16 14:05 O2 Sat by Pulse Oximetry (%) 96 08/10/16 21:00 Neurological: Yes: Other (Level Of Consciousness: Yes: Alert, Oriented to Person (awake and alert, EOMI, VFF, no facial, motor: UE 5/5 , no drift, no ataxia, RLE pain limited at hip atnd knee though appears 5/5, no sensory level, dec reflexes distal LE, plantars appear up, pain in the post aspect R knee, gait short unsteady steps.) Labs: CBC, BMP 08/11/16 06:55 08/11/16 06:55 INR, PTT INR 1.08 (0.82-1.09) 08/09/16 22:00 Problem List - Problems (1) Dementia Code(s): F03.90 - UNSPECIFIED DEMENTIA WITHOUT BEHAVIORAL DISTURBANCE (2) Gait abnormality Assessment/Plan: Getting rehab, awaits MRI. Code(s): R26.9 - UNSPECIFIED ABNORMALITIES OF GAIT AND MOBILITY
[2016-08-11] MEDS: ATORVASTATIN CA 40 MG TABLET (FP) PO SCH (21:13)
[2016-08-12] MEDS: ALBUTEROL SO4 2.5/IPRATROPIUM 0.5 INH SOL 3 ML VIAL.NEB. NEB SCH ×3 (06:42→17:39)
--- NOTE | 2016-08-12 08:20 | PN ---
Progress Note (short form) - Note Progress Note: Still Oriented x1-2, some confabulations noted. NAD. PT notes appreciated Vital Signs Period Temp Pulse Resp BP Sys/Laws Pulse Ox Last 24 Hr 98 F-99.1 F 89-106 18-19 110-157/72-82 96 Neck supple Lungs are Clear. Chest-well healed midline scar. Heart S1S2 regular Abdomen soft, NT, no HSM Laboratory Results - last 24 hr 08/11/16 08/11/16 06:55 06:55 WBC 5.2 D RBC 4.08 Hgb 12.1 Hct 36.2 MCV 88.7 MCHC 33.3 RDW 13.9 Plt Count 200 MPV 8.4 Neutrophils % 66.9 Lymphocytes % 17.9 Monocytes % 10.8 H Eosinophils % 3.6 D Basophils % 0.8 Sodium 141 Potassium 4.3 Chloride 108 H Carbon Dioxide 22 Anion Gap 11 BUN 16 D Creatinine 0.6 D Creat Clearance w eGFR > 60 Random Glucose 91 D Calcium 8.8 Total Bilirubin 1.0 D AST 22 ALT 16 Alkaline Phosphatase 84 Total Protein 6.4 Albumin 3.3 L Prealbumin 18.8 L Current Active Problems Problem Status Diagnosed ARF (acute renal failure) Acute Dehydration Acute Dementia Acute Fall from chair Acute Gait abnormality Acute Generalized weakness Acute Plan Continue PT, meds. SNF for rehab MRI head/neck-was not done yet. Can be done from SNF or as outpt Spoke to patient's niece= Jessie Moody Patient is strongly advised against driving. Problem List - Problems (1) Generalized weakness Code(s): R53.1 - WEAKNESS (2) ASHD (arteriosclerotic heart disease) Code(s): I25.10 - ATHSCL HEART DISEASE OF [place] CORONARY ARTERY W/O ANG PCTRS (3) COPD (chronic obstructive pulmonary disease) Code(s): J44.9 - CHRONIC OBSTRUCTIVE PULMONARY DISEASE, UNSPECIFIED Qualifiers : COPD type: emphysema (4) Confusion Code(s): R41.0 - DISORIENTATION, UNSPECIFIED (5) ARF (acute renal failure) Code(s): N17.9 - ACUTE KIDNEY FAILURE, UNSPECIFIED Qualifiers: Acute renal failure type: unspecified Qualified Code(s): N17.9 - Acute kidney failure, unspecified
--- NOTE | 2016-08-12 08:23 | DS ---
Physical Examination Vital Signs: Vital Signs Temperature 99.1 F 08/11/16 21:38 Pulse Rate 91 H 08/11/16 22:00 Respiratory Rate 19 08/11/16 21:38 Blood Pressure 153/72 08/11/16 22:00 O2 Sat by Pulse Oximetry (%) 96 08/11/16 09:00 Constitutional: Yes: No Distress, Calm. No: Anxious Eyes: Yes: Conjunctiva Clear, EOM Intact HENT: Yes: Atraumatic, Normocephalic Neck: Yes: Supple, Trachea Midline Cardiovascular: Yes: Regular Rate and Rhythm Respiratory: Yes: Regular, CTA Bilaterally Gastrointestinal: Yes: Normal Bowel Sounds. No: Soft, Abdomen, Obese ...Rectal Exam: Yes: Deferred Renal/: No: Anuria, Bladder Distention Musculoskeletal: No: Joint Swelling, Muscle Pain, Muscle Weakness Extremities: No: Amputation, Calf Tenderness, Cold, Cyanosis Edema: No Peripheral Pulses WNL: No Integumentary: Yes: WNL Neurological: Yes: Alert, Oriented (X2) Psychiatric: Yes: Alert, Oriented (X2) Labs: CBC, BMP 08/11/16 06:55 08/11/16 06:55 Discharge Summary Reason For Visit: FALL FROM CHAIR,DEMENTIA,WEAKNESS Current Active Problems ARF (acute renal failure) (Acute) Dehydration (Acute) Dementia (Acute) Fall from chair (Acute) Gait abnormality (Acute) Generalized weakness (Acute) Condition: Improved - Instructions Disposition: [facility] - Home Medications Comprehensive Discharge Medication List: Ambulatory Orders Albuterol 2.5/Ipratropium 0.5 [Duoneb -] 1 [facility] QIDR #1 vial 03/22/14 Aspirin [ASA -] 81 mg PO DAILY #1 tab.chew 03/22/14 Atorvastatin Ca [Lipitor] 40 mg PO HS 1 Days 03/22/14 Carvedilol [Coreg -] 3.125 mg PO BID #1 tablet 03/22/14 Clopidogrel Bisulfate [Plavix -] 75 mg PO DAILY #1 tablet 03/22/14 Pantoprazole Sodium [Protonix -] 40 mg PO DAILY #1 tablet.ec 03/22/14 Thiamine HCl [Vitamin B1 -] 100 mg PO DAILY #1 tablet 03/22/14 Acetaminophen [Tylenol -] 1,000 mg PO TID PRN #30 tablet 08/07/16 Methocarbamol [Robaxin -] 250 mg PO TID PRN #10 tablet 08/07/16
[2016-08-12] MEDS ORDERED: PT OWN MED DRAWER 7, Y5N ONE (11:03)
[2016-08-12] MEDS: CLOPIDOGREL BISULFATE 75 MG TABLET (FP) PO SCH (11:04)
[2016-08-12] MEDS: ASPIRIN 81 MG CHEWABLE TABLETS PO SCH (11:04)
[2016-08-12] MEDS: THIAMINE HCL 100 MG TABLET (FP) PO SCH (11:04)
[2016-08-12] MEDS: CARVEDILOL 3.125 MG TABLET (FP) PO SCH ×2 (11:05→21:01)
[2016-08-12] MEDS: POLYETHYLENE GLYCOL 3350 119 GM BTL PO SCH ×2 (11:05→21:01)
[2016-08-12] MEDS: ATORVASTATIN CA 40 MG TABLET (FP) PO SCH (21:01)
[2016-08-13] MEDS: ALBUTEROL SO4 2.5/IPRATROPIUM 0.5 INH SOL 3 ML VIAL.NEB. NEB SCH ×2 (00:04→07:01)
--- NOTE | 2016-08-13 07:35 | PN ---
Progress Note, Physician Chief Complaint: Pleasantly confused. Was resting comfortably overnight History of Present Illness: Left hip ORIF. Hx of [place] and CABG at [facility]. COPD. Gait disorder. Cognitive impairment Hx of ETOH hepatitis yrs ago. 2015 Strep bacteremia - Current Medication List Current Medications: Active Medications Albuterol/Ipratropium (Duoneb -) 1 amp NEB QIDR [facility] Last Admin: 08/13/16 07:01 Dose: Not Given Aspirin (Asa -) 81 mg PO DAILY [facility] Last Admin: 08/12/16 11:04 Dose: 81 mg Atorvastatin Calcium (Lipitor -) 40 mg PO HS [facility] Last Admin: 08/12/16 21:01 Dose: 40 mg Carvedilol (Coreg -) 3.125 mg PO BID [facility] Last Admin: 08/12/16 21:01 Dose: 3.125 mg Clopidogrel Bisulfate (Plavix -) 75 mg PO DAILY [facility] Last Admin: 08/12/16 11:04 Dose: 75 mg Sodium Chloride (Normal Saline -) 1,000 mls @ 75 mls/hr IV ASDIR [facility] Last Admin: 08/11/16 01:43 Dose: 75 mls/hr Polyethylene Glycol (Miralax (For Daily Use) -) 17 gm PO BID [facility] Last Admin: 08/12/16 21:01 Dose: 17 grams Thiamine HCl (Vitamin B1 -) 100 mg PO DAILY [facility] Last Admin: 08/12/16 11:04 Dose: 100 mg - Objective Vital Signs: Vital Signs Temperature 98.8 F 08/13/16 06:00 Pulse Rate 78 08/13/16 06:00 Respiratory Rate 18 08/13/16 06:00 Blood Pressure 130/56 08/13/16 06:00 O2 Sat by Pulse Oximetry (%) 96 08/12/16 21:00 Constitutional: Yes: No Distress, Anxious Eyes: Yes: Conjunctiva Clear, EOM Intact HENT: Yes: Atraumatic, Normocephalic Neck: Yes: Supple, Trachea Midline Cardiovascular: Yes: Regular Rate and Rhythm, S1, S2 Respiratory: Yes: Regular, CTA Bilaterally Gastrointestinal: Yes: Normal Bowel Sounds, Soft. No: Abdomen, Obese ...Rectal Exam: Yes: Deferred Genitourinary: No: Anuria, Bladder Distention, CVA Tenderness - Left, CVA Tenderness - Right Breast(s): Yes: WNL Musculoskeletal: No: Joint Stiffness, Joint Swelling Extremities: No: Amputation, Calf Tenderness, Cold, Cyanosis Edema: No Neurological: Yes: Alert, Oriented (x1) Labs: CBC, BMP 08/11/16 06:55 08/11/16 06:55 INR, PTT INR 1.08 (0.82-1.09) 08/09/16 22:00 Problem List - Problems (1) Generalized weakness Assessment/Plan: Fall at home PT at SNF Code(s): R53.1 - WEAKNESS (2) ASHD (arteriosclerotic heart disease) Assessment/Plan: Continue Lipitor, Coreg, ASA/Plavix. Code(s): I25.10 - ATHSCL HEART DISEASE OF [place] CORONARY ARTERY W/O ANG PCTRS (3) COPD (chronic obstructive pulmonary disease) Assessment/Plan: EX smoker. Continue nebs. Code(s): J44.9 - CHRONIC OBSTRUCTIVE PULMONARY DISEASE, UNSPECIFIED Qualifiers : COPD type: emphysema (4) Confusion Assessment/Plan: Pt has some chronic cognitive but mild impairment MRI head and neck can be done from SNF Code(s): R41.0 - DISORIENTATION, UNSPECIFIED (5) ARF (acute renal failure) Assessment/Plan: Resolved Code(s): N17.9 - ACUTE KIDNEY FAILURE, UNSPECIFIED Qualifiers: Acute renal failure type: unspecified Qualified Code(s): N17.9 - Acute kidney failure, unspecified
[2016-08-13 09:22] VITALS: BP 141/63; PULSE 76; TEMP 98.5
[2016-08-13] MEDS: THIAMINE HCL 100 MG TABLET (FP) PO SCH (10:21)
[2016-08-13] MEDS: CARVEDILOL 3.125 MG TABLET (FP) PO SCH (10:21)
[2016-08-13] MEDS: CLOPIDOGREL BISULFATE 75 MG TABLET (FP) PO SCH (10:21)
[2016-08-13] MEDS: ASPIRIN 81 MG CHEWABLE TABLETS PO SCH (10:22)
[2016-08-13] MEDS: POLYETHYLENE GLYCOL 3350 119 GM BTL PO SCH (10:25)
== END 2016-08-13 10:35 | DRG 641 ==
LOC: JER 21:08 → JERBED 23:43 → J6S 08-10 03:28
PROVIDERS: ADMIT Internal Medicine; ATTEND Internal Medicine
DX: E86.0 Dehydration (principal); N17.9 Acute kidney failure, unspecified; W08.XXXA Fall from other furniture, initial encounter; M25.561 Pain in right knee; M25.551 Pain in right hip; Y92.008 Other place in unspecified non-institutional (private) residence as the place of occurrence of the external cause; F03.90 Unspecified dementia, unspecified severity, without behavioral disturbance, psychotic disturbance, mood disturbance, and anxiety; I25.10 Atherosclerotic heart disease of native coronary artery without angina pectoris; Z95.1 Presence of aortocoronary bypass graft; J44.9 Chronic obstructive pulmonary disease, unspecified; E78.5 Hyperlipidemia, unspecified; Z87.891 Personal history of nicotine dependence; I25.2 Old myocardial infarction; M19.90 Unspecified osteoarthritis, unspecified site; R26.9 Unspecified abnormalities of gait and mobility; M62.59 Muscle wasting and atrophy, not elsewhere classified, multiple sites
CPT/HCPCS: 36415; 71010-TC; 73523-TC; 80053; 81003; 81015; 82436; 82570; 82607; 82746; 84133; 84134; 84300; 84439; 84443; 84481; 85025; 85610; 85651; 86140; 87040; 87086; 93005; 93010; 94640; 97116-GP; 97161-GP; 99282-25; 99283-25